=== PATIENT | male | born 1945 | race Two or more races ===

== ENCOUNTER 2023-01-11 08:16 | Inpatient (IN) | payer MEDICARE, BC ==
[~2023-01-11] VITALS: Ht 172.7 cm; Wt 73.5 kg
[2023-01-11 09:01] LABS: *BILIRUBIN,URIN NEGATIVE (NEGATIVE); *BLOOD, URINE NEGATIVE (NEGATIVE); *CLARITY,URINE CLEAR (CLEAR); *COLOR,URINE YELLOW (YELLOW); *KETONES,URINE NEGATIVE (NEGATIVE); *UROBILINOGEN,URINE 0.2 E.U./dl (NORMAL); LEUKOCYTE ESTERASE ,URINE NEGATIVE (NEGATIVE); NITRITE, URINE NEGATIVE (NEGATIVE); PH,URINE 6.5 (5.0-8.0); UGLUCOSE NEGATIVE (NEGATIVE)
[2023-01-11 09:07] LABS: HEMATOCRIT 45.2 % (36.7-47.1); MEAN CORPUSCULAR HEMOGLOBIN 30.3 uug (23.8-33.4); MEAN CORPUSCULAR VOLUME 90.5 fL (73.0-96.2); PLATELET COUNT (AUTO) 131 K/uL (152-348)
[2023-01-11 09:09] LABS: CREATININE 0.8 mg/dL (0.6-1.3); POTASSIUM 4.2 mmol/L (3.5-5.1)
[2023-01-11 09:15] LABS: BILIRUBIN,TOTAL 0.3 mg/dL (0.2-1.0); TOTAL PROTEIN, SERUM 6.9 g/dL (6.4-8.2)
[2023-01-11] MEDS ORDERED: LIDOCAINE-MPF 2% 5 ML VIAL ONE (10:00)
[2023-01-11] MEDS ORDERED: SUCCINYLCHOLINE CHLORIDE 200 MG/10 ML VIAL ONE (10:00)
[2023-01-11] MEDS ORDERED: PHENYLEPHRINE 10 MG/1 ML VIAL ONE (10:00)
[2023-01-11] MEDS ORDERED: NEOSTIGMINE METHYLSULFATE 10 MG/10 ML VIAL ONE (10:00)
[2023-01-11] MEDS ORDERED: METOCLOPRAMIDE HCL 10 MG/2 ML VIAL ONE (10:00)
[2023-01-11] MEDS ORDERED: GLYCOPYRROLATE 0.2 MG/ML VIAL ONE (10:00)
[2023-01-11] MEDS ORDERED: PROPOFOL 200 MG/20 ML BOTTLE ONE ×2 (10:00)
[2023-01-11] MEDS ORDERED: CEFAZOLIN 2 G in IV DEXTROSE 5% 100 ML IV ONE (10:00)
[2023-01-11] MEDS ORDERED: ONDANSETRON 4 MG/2 ML VIAL ONE (10:00)
[2023-01-11] MEDS ORDERED: CEFAZOLIN 1 G VIAL ONE ×2 (10:00)
[2023-01-11] MEDS ORDERED: DEXAMETHASONE SOD PHOSPHATE 4 MG INJ ONE (10:00)
[2023-01-11] MEDS ORDERED: LIDOCAINE 1%-EPI 1:100,000 20 ML VIAL ONE (10:12)
[2023-01-11] MEDS ORDERED: BACITRACIN/POLYMYXIN B OINT 15 GM TUBE ONE (10:13)
[2023-01-11] MEDS ORDERED: BUPIVACAINE PF 0.5% 30 ML VIAL ONE (10:13)
[2023-01-11] MEDS ORDERED: BUPIVACAINE 0.25% 30 ML VIAL ONE (10:13)
[2023-01-11] MEDS ORDERED: KETAMINE HCL 200 MG/20 ML VIAL ONE (10:32)
[2023-01-11] MEDS ORDERED: FENTANYL CITRATE 100 MCG/2 ML AMPUL ONE (10:32)
[2023-01-11] MEDS ORDERED: MIDAZOLAM HCL 2 MG/2 ML VIAL ONE (10:32)
[2023-01-11] MEDS ORDERED: FAMOTIDINE. 20 MG/2 ML VIAL IV ONE (10:32)
[2023-01-11] MEDS ORDERED: LIDOCAINE HCL 1% 20 ML VIAL ONE (10:34)
[2023-01-11 10:45] LABS: BACTERIA,URINE NONE SEEN /HPF (NONE SEEN); RBC,URINE 0-3 /HPF (0-3); SQUAMOUS EPITHELIAL CELL,UR FEW /HPF (NONE SEEN); WBC,URINE NONE SEEN /HPF (0-3)
[2023-01-11] MEDS ORDERED: ALBUTEROL SULFATE 2.5 MG/3 ML NEBU ONE ×2 (12:47→13:27)
[2023-01-11] MEDS ORDERED: IPRATROPIUM BROMIDE 0.5 MG/2.5 ML NEBU ONE ×2 (12:47→13:27)
[2023-01-11] MEDS ORDERED: ALBUTEROL SULFATE 8 GM HFA.AER.AD ONE (12:49)
[2023-01-11] MEDS ORDERED: LABETALOL HCL 100 MG/20 ML VIAL ONE (12:56)
[2023-01-11 13:28] VITALS: O2SAT 96
[2023-01-11 13:56] VITALS: O2SAT 98
[2023-01-11] MEDS ORDERED: GABAPENTIN 300 MG CAPSULE PO SCH (14:00)
[2023-01-11] MEDS ORDERED: BUDESONIDE 0.5 MG/2 ML NEBU NEB ONE (14:00)
[2023-01-11] MEDS ORDERED: ALBUTEROL SULFATE 2.5 MG/ 0.5 ML NEBU NEB ONE (14:00)
[2023-01-11] MEDS ORDERED: ACETAMINOPHEN 325 MG TABLET PO SCH ×2 (14:00→16:00)
[2023-01-11] MEDS ORDERED: methylPREDNISolone SOD SUCC 125 MG/2 ML VIAL IV ONE (14:00)
[2023-01-11] MEDS ORDERED: CELECOXIB 200 MG CAPSULE PO SCH (14:00)
[2023-01-11] MEDS ORDERED: IPRATROPIUM BROMIDE 0.5 MG/2.5 ML NEBU NEB ONE (14:00)
[2023-01-11 15:50] VITALS: BP 125/56; TEMP 97.4; O2SAT 92
--- NOTE | 2023-01-11 16:00 | NUR ---
77 year old male pt received from recovery room to room 302,pt is [id number].call light with in reach vs are stable md notified for the admission
[2023-01-11] MEDS ORDERED: ROSU20TA2 PO (16:02)
[2023-01-11] MEDS: GABAPENTIN 300 MG CAPSULE PO SCH ×2 (16:07→23:30)
[2023-01-11] MEDS: CELECOXIB 200 MG CAPSULE PO SCH (16:07)
[2023-01-11] MEDS ORDERED: ROSU10TA2 GT (16:12)
[2023-01-11] MEDS ORDERED: AMLO1TAB12 PO (16:12)
[2023-01-11] MEDS ORDERED: METO50TA16 PO (16:13)
[2023-01-11] MEDS ORDERED: METF-440 PO (16:13)
[2023-01-11] MEDS ORDERED: SOLI10TA2 PO (16:14)
[2023-01-11] MEDS ORDERED: EZET10TA15 PO (16:14)
[2023-01-11] MEDS: OXYBUTYNIN CHLORIDE 5 MG TABLET PO SCH (19:06)
[2023-01-11] MEDS ORDERED: FUROSEMIDE 20 MG/2 ML VIAL IV ONE (19:15)
[2023-01-11 20:54] VITALS: BP 130/57; TEMP 98.4; O2SAT 94
[2023-01-11] MEDS ORDERED: ALBUTEROL SULFATE 2.5 MG/ 0.5 ML NEBU NEB PRN (22:00)
[2023-01-11] MEDS ORDERED: MAGNESIUM HYDROXIDE 30 ML LIQUID UDC PO PRN (22:00)
[2023-01-11] MEDS ORDERED: ACETAMINOPHEN 325 MG TABLET PO PRN (22:00)
[2023-01-11] MEDS ORDERED: ONDANSETRON 4 MG/2 ML VIAL IV PRN (22:00)
[2023-01-12] MEDS: CELECOXIB 200 MG CAPSULE PO SCH (03:13)
[2023-01-12 05:41] VITALS: O2SAT 98
[2023-01-12 06:13] VITALS: BP 126/56; TEMP 98.8; O2SAT 92
[2023-01-12 06:54] LABS: HEMATOCRIT 42.2 % (36.7-47.1); MEAN CORPUSCULAR VOLUME 91.1 fL (73.0-96.2); PLATELET COUNT (AUTO) 136 K/uL (152-348)
[2023-01-12] MEDS ORDERED: PANTOPRAZOLE SODIUM 40 MG TABLET.DR PO SCH (07:00)
[2023-01-12 07:21] LABS: THYROID STIMULATING HORMONE 0.108 mIU/mL (0.358-3.740)
[2023-01-12 07:24] LABS: ALANINE AMINOTRANSFERASE 17 U/L (16-63); ALKALINE PHOSPHATASE 75 U/L (50-136); ASPARTATE AMINOTRANSFERASE 14 U/L (15-37); BILIRUBIN,TOTAL 0.2 mg/dL (0.2-1.0); CARBON DIOXIDE 27 mmol/L (21-32); CHLORIDE 104 mmol/L (98-107); CHOLESTEROL 152 mg/dL (<200); HDL CHOLESTEROL 51 mg/dL (40-60); MAGNESIUM 1.9 mg/dL (1.8-2.4); PHOSPHOROUS 1.9 mg/dL (2.5-4.9); POTASSIUM 4.2 mmol/L (3.5-5.1); TOTAL PROTEIN, SERUM 6.3 g/dL (6.4-8.2); TRIGLYCERIDES 77 MG/DL (30-150); UREA NITROGEN, BLOOD 16 mg/dL (7-18)
--- NOTE | 2023-01-12 08:00 | NUR ---
awake alert and oriented x3 no ss of acute pain or sob on 2l nc sat 95% deressin left groin intact and dry afebrile.
[2023-01-12] MEDS: OXYBUTYNIN CHLORIDE 5 MG TABLET PO SCH (08:19)
[2023-01-12] MEDS: GABAPENTIN 300 MG CAPSULE PO SCH (08:19)
[2023-01-12 11:30] VITALS: BP 115/49; TEMP 98.2; O2SAT 95
--- NOTE | 2023-01-12 11:30 | NUR ---
seen by dr dudley said okay for discharge and follow-up with dr youssef
--- NOTE | 2023-01-12 12:48 | NUR ---
discharged home stable accompanied by . discharged with aldana per dr DARIAN WEINER, AND FOLLOW-UP WITH DR RAY
[2023-01-12] MEDS ORDERED: DOCUSATE SODIUM 100 MG CAPSULE PO SCH (21:00)
== END 2023-01-12 12:30 | disposition home or self-care (01) | DRG 352 ==
LOC: DS 08:16 → MEDSURG3 15:09
PROVIDERS: ADMIT Internal Medicine; ATTEND Internal Medicine
PROC: 0YU60JZ Supplement Left Inguinal Region with Synthetic Substitute, Open Approach (ICD-10-PCS; principal; 2023-01-11)
PROC: 0VBG0ZZ Excision of Left Spermatic Cord, Open Approach (ICD-10-PCS; 2023-01-11)
DX: K40.31 Unilateral inguinal hernia, with obstruction, without gangrene, recurrent (principal); E11.9 Type 2 diabetes mellitus without complications; E78.5 Hyperlipidemia, unspecified; I25.10 Atherosclerotic heart disease of native coronary artery without angina pectoris; N40.0 Benign prostatic hyperplasia without lower urinary tract symptoms; Z95.5 Presence of coronary angioplasty implant and graft; I11.9 Hypertensive heart disease without heart failure; M19.90 Unspecified osteoarthritis, unspecified site; Z79.84 Long term (current) use of oral hypoglycemic drugs; J44.9 Chronic obstructive pulmonary disease, unspecified; D17.6 Benign lipomatous neoplasm of spermatic cord; F17.210 Nicotine dependence, cigarettes, uncomplicated
CPT/HCPCS: 36415; 71045; 83735; 84100; 84443; 84484; 85025; 85730; 93005; 94640; A4649; A4663; C1781; G0378; J0330; J0690; J1100; J1940; J2250; J2370; J2405; J2765; J2930; J3010; J3490; J3535; J3590; J7120